=== PATIENT | female | born 2000 | race African-American/Black ===

== ENCOUNTER 2022-07-22 11:29 | Emergency (ER) | payer OTHER ==
[~2022-07-22] VITALS: Ht 160 cm; Wt 66.4 kg
[~2022-07-22 11:29] MED LIST: AZITHROMYCIN250 MG PO
[2022-07-22] MEDS ORDERED: ONDANSETRON HCL 4 MG ORAL DISINTEGRATING TAB PO ONE (13:15)
[2022-07-22] MEDS ORDERED: ONDANSETRON HCL 4 MG ORAL DISINTEGRATING TAB ONE (13:23)
[2022-07-22] MEDS ORDERED: SODIUM CHLORIDE 0.9% 1000ML 1,000 ML IV STA (14:02)
[2022-07-22] MEDS ORDERED: FAMOTIDINE 20 MG/2 ML VIAL IV ONE ×2 (14:03→14:15)
[2022-07-22] MEDS ORDERED: SODIUM CHLORIDE 0.9% 1000ML 1,000 ML ONE (14:03)
[2022-07-22] MEDS ORDERED: ONDANSETRON ODT4 MG PO (14:30)
[2022-07-22] MEDS ORDERED: FAMOTIDINE20 MG PO (14:30)
== END 2022-07-22 14:47 | disposition home or self-care (01) ==
LOC: FSED 11:40
DX: R11.2 Nausea with vomiting, unspecified (principal); K52.9 Noninfective gastroenteritis and colitis, unspecified; R10.30 Lower abdominal pain, unspecified
CPT/HCPCS: 74176; 80048; 80076; 81003; 81025; 85025; 96374; 99284; J7030; Q0162